=== PATIENT | female | born 1985 | race Caucasian/White ===

== ENCOUNTER 2017-09-01 23:54 | Outpatient (CLI) | payer OTHER ==
[~2017-09-01 23:54] MED LIST: ACETAMINOPHEN-1 EAC1 PO; AMBIEN5 M1 PO; BACTRIM,SEPT1 TABLET PO; CELEXA20 MG PO; CIPRO500 M1 PO; DOXYCYCLINE HY100 MG PO; ENDOCET 5-3251 EACH PO; FERROUS SULFAT325 MG PO; FLEXERIL10 MG PO; Feosol PO; Flagyl PO; IBUPROFEN800 MG PO; KEFLEX500 MG PO; Keflex PO; METHADONE PO; METHADONE10 MG PO; METHADOSE10 MG PO; METHadone HCl PO; MISOPROSTOL200 MCG PO; MOTRIN600 MG PO; MOTRIN800 MG PO; Macrobid PO; Methadone Oral Solut PO; Motrin PO; NAPROSYN500 MG PO; NATALCARE RX1 TABLET PO; NITROFURANTOIN100 M3 PO; NORCO 7.5/321 TABLET PO; NUVARING VAGIN1 EACH PO; Natalcare Rx,Pramile PO; PAXIL10 MG PO; PAXIL20 MG PO; PROMETHAZINE HC25 M1 PO; PYRIDIUM200 MG PO; Percocet 5/325,Endoc PO; Phenergan PO; REGLAN10 MG PO; STRATTERA40 MG PO; TRAMADOL HCL50 MG PO; TRI-ESTARYLLA1 EACH PO; ULTRAM50 MG PO; WELLBUTRIN100 MG PO; ZOFRAN ODT4 MG PO; ZOFRAN4 MG PO; ZOLOFT25 MG PO
[2017-09-02] VITALS (10 sets, daily range): BP systolic 97–117; BP diastolic 54–65
[2017-09-02 00:41] LABS: BASOPHIL (%) 0.1 % (0-1); EOSINOPHIL (%) 0.1 % (0-5); HEMATOCRIT 28.1 % (36.0-46.0); HEMOGLOBIN 9.4 G/DL (11.9-15.5); IMMATURE GRANULOCYTE (%) 0.6 % (0.0-0.7); LYMPHOCYTE (%) 5.4 % (15-42); LYMPHOCYTE COUNT 0.7 K/uL (1.0-2.8); MCH 27.4 PG (29.0-34.0); MCHC 33.5 G/DL (30.0-36.0); MCV 81.9 FL (83-99); MONOCYTE (%) 10.2 % (3-12); MONOCYTE COUNT 1.4 K/uL (0-0.8); NEUTROPHIL (%) 83.6 % (45-76); NEUTROPHIL COUNT 11.3 K/uL (1.8-6.4); PLATELET COUNT 189 K/uL (156-360); RBC DIS.WIDTH-CV 14.1 % (11.8-14.6); RBC DIS.WIDTH-SD 41.9 % (39-53); RED BLOOD COUNT 3.43 M/uL (3.80-5.20); WHITE BLOOD COUNT 13.5 K/uL (4.1-10.2)
[2017-09-02] MEDS ORDERED: MACROBID100 MG PO (01:03)
[2017-09-02] MEDS ORDERED: METHADONE 22 MG/1 ML PO (01:05)
[2017-09-02] MEDS ORDERED: ATARAX,VISTARIL25 MG PO (01:06)
[2017-09-02] MEDS ORDERED: PROMETHAZINE HC25 M1 PO (01:07)
[2017-09-02] MEDS ORDERED: EXCEDRIN MIGRA1 EAC3 PO (01:07)
[2017-09-02 02:22] LABS: APPEARANCE SL.HAZY ((CLEAR)); BILIRUBIN NEGATIVE; BLOOD NEGATIVE; COLOR YELLOW ((YELLOW)); GLUCOSE (STRIP) NEGATIVE; KETONES 5; LEUKOCYTES MODERATE; NITRITE NEGATIVE; PROTEIN (STRIP) 100; SPECIFIC GRAVITY 1.009 (1.000-1.030)
[2017-09-02 02:32] LABS: BACTERIA RARE /HPF; EPITHELIAL CELLS 1+ /HPF; MUCUS NONE SEEN /LPF; RED BLOOD CELLS 0-5 /HPF (0-5); UCUL ADDED? YES; WHITE BLOOD CELLS 20-30 /HPF (0-5)
[2017-09-02 03:21] LABS: AMPHETAMINE NEGATIVE (500 ng/mL); BARBITURATES NEGATIVE (200 ng/mL); BENZODIAZEPINES NEGATIVE (150 ng/mL); BUPRENORPHINE NEGATIVE (10 ng/mL); COCAINE NEGATIVE (150 ng/mL); METHADONE PRESUMPTIVE POSITIVE (200 ng/mL); METHAMPHETAMINE NEGATIVE (500 ng/mL); OPIATES (MORPHINE) NEGATIVE (100 ng/mL); OXYCODONE NEGATIVE (100 ng/mL); PHENCYCLIDINE NEGATIVE (25 ng/mL); PROPOXYPHENE NEGATIVE (300 ng/mL); THC CANNABINOIDS PRESUMPTIVE POSITIVE (50 ng/mL); TRICYCLIC ANTIDEPRESSANTS NEGATIVE (300 ng/mL)
[2017-09-02 12:03] LABS: BASOPHIL (%) 0.2 % (0-1); EOSINOPHIL (%) 0.6 % (0-5); EOSINOPHIL COUNT 0.1 K/uL (0-0.3); IMMATURE GRANULOCYTE (%) 0.7 % (0.0-0.7); LYMPHOCYTE (%) 7.5 % (15-42); LYMPHOCYTE COUNT 0.9 K/uL (1.0-2.8); MCH 27.5 PG (29.0-34.0); MCHC 33.3 G/DL (30.0-36.0); MCV 82.6 FL (83-99); MONOCYTE (%) 9.5 % (3-12); MONOCYTE COUNT 1.2 K/uL (0-0.8); NEUTROPHIL (%) 81.5 % (45-76); NEUTROPHIL COUNT 9.9 K/uL (1.8-6.4); PLATELET COUNT 195 K/uL (156-360); RBC DIS.WIDTH-CV 14.3 % (11.8-14.6); RED BLOOD COUNT 3.27 M/uL (3.80-5.20); WHITE BLOOD COUNT 12.2 K/uL (4.1-10.2)
[2017-09-02 12:11] LABS: ALBUMIN 2.7 g/dL (3.2-4.8); CHLORIDE 103 mEq/L (99-109); POTASSIUM 3.5 mEq/L (3.7-5.4); SODIUM 134 mEq/L (136-147)
[2017-09-02 12:14] LABS: GLUCOSE 149 mg/dL (70-99); TOTAL PROTEIN 5.4 g/dL (6.4-8.3)
[2017-09-02 12:16] LABS: TOTAL BILIRUBIN 0.2 mg/dL (0.0-1.0)
[2017-09-02 12:17] LABS: ALKALINE PHOSPHATASE 151 IU/L (3-129); CREATININE 0.7 mg/dL (0.6-1.3); GFR ESTIMATE (CALCULATED) > 59 mL/min/
[2017-09-02 12:18] LABS: UREA NITROGEN (BUN) 8 mg/dL (9-23)
[2017-09-02 12:19] LABS: AST (GOT) 14 IU/L (2-34)
[2017-09-02 12:20] LABS: ALT (GPT) 12 IU/L (3-49)
[2017-09-03 03:08] VITALS: BP 108/51
[2017-09-03 06:58] VITALS: BP 108/62
[2017-09-03 11:22] VITALS: BP 97/55
[2017-09-03 11:27] VITALS: BP 89/53
[2017-09-03] MEDS ORDERED: VICODIN 5-3001 EACH PO (12:19)
[2017-09-03 13:54] VITALS: BP 91/55
[2017-09-03 13:56] VITALS: BP 95/56
[2017-09-04] MEDS ORDERED: PRENATAL TABLE1 EAC3 PO (17:35)
[2017-09-04] MEDS ORDERED: PROMETHAZINE HC25 M1 PO (17:35)
== END 2017-09-03 14:24 | disposition home or self-care (01) ==
LOC: LDRP-OP 23:54 → 2WEST 23:55
PROVIDERS: Midwife; Obstetrics & Gynecology; Obstetrics & Gynecology Obstetrics
DX: O23.03 Infections of kidney in pregnancy, third trimester (principal); N12 Tubulo-interstitial nephritis, not specified as acute or chronic; B96.20 Unspecified Escherichia coli [E. coli] as the cause of diseases classified elsewhere; Z87.440 Personal history of urinary (tract) infections; Z87.442 Personal history of urinary calculi; Z3A.37 37 weeks gestation of pregnancy; O99.323 Drug use complicating pregnancy, third trimester; F11.20 Opioid dependence, uncomplicated; F12.90 Cannabis use, unspecified, uncomplicated; O99.343 Other mental disorders complicating pregnancy, third trimester; F41.9 Anxiety disorder, unspecified; F32.9 Major depressive disorder, single episode, unspecified; O99.333 Smoking (tobacco) complicating pregnancy, third trimester; F17.200 Nicotine dependence, unspecified, uncomplicated; O99.213 Obesity complicating pregnancy, third trimester; E66.9 Obesity, unspecified; Z68.41 Body mass index [BMI] 40.0-44.9, adult; O34.211 Maternal care for low transverse scar from previous cesarean delivery; O09.33 Supervision of pregnancy with insufficient antenatal care, third trimester; Z82.49 Family history of ischemic heart disease and other diseases of the circulatory system; Z82.5 Family history of asthma and other chronic lower respiratory diseases; Z82.3 Family history of stroke; Z82.0 Family history of epilepsy and other diseases of the nervous system; Z80.1 Family history of malignant neoplasm of trachea, bronchus and lung; Z80.0 Family history of malignant neoplasm of digestive organs; Z83.49 Family history of other endocrine, nutritional and metabolic diseases
CPT/HCPCS: 59025; 80053; 81003; 83605; 84999; 85025; 85025 91; 87040; 87077; 87081; 87086; 87186; 87653; 87801; G0378; J0696; J7120; Q0169

== ENCOUNTER 2017-09-14 07:14 | Inpatient (IN) | payer OTHER ==
[~2017-09-14] VITALS: Ht 165.1 cm; Wt 122.7 kg
[~2017-09-14 07:14] MED LIST changes: +ATARAX,VISTARIL25 MG PO; +EXCEDRIN MIGRA1 EAC3 PO; +MACROBID100 MG PO; +METHADONE 22 MG/1 ML PO; +PRENATAL TABLE1 EAC3 PO; +ROCEPHIN2 GM/50 ML IV; +VICODIN 5-3001 EACH PO
[2017-09-14 07:33] VITALS: BP 117/58
[2017-09-14 08:56] VITALS: BP 102/50
[2017-09-14 11:34] LABS: AMPHETAMINE NEGATIVE (500 ng/mL); BARBITURATES NEGATIVE (200 ng/mL); BENZODIAZEPINES NEGATIVE (150 ng/mL); BUPRENORPHINE NEGATIVE (10 ng/mL); COCAINE NEGATIVE (150 ng/mL); METHADONE PRESUMPTIVE POSITIVE (200 ng/mL); METHAMPHETAMINE NEGATIVE (500 ng/mL); OPIATES (MORPHINE) NEGATIVE (100 ng/mL); OXYCODONE NEGATIVE (100 ng/mL); PHENCYCLIDINE NEGATIVE (25 ng/mL); PROPOXYPHENE NEGATIVE (300 ng/mL); THC CANNABINOIDS NEGATIVE (50 ng/mL); TRICYCLIC ANTIDEPRESSANTS NEGATIVE (300 ng/mL)
[2017-09-14 14:12] VITALS: BP 111/65
[2017-09-14 15:35] VITALS: BP 119/57
[2017-09-14 17:23] VITALS: BP 109/59
[2017-09-14 19:16] VITALS: BP 106/55
[2017-09-15 06:23] LABS: BASOPHIL (%) 0.2 % (0-1); EOSINOPHIL (%) 0.7 % (0-5); EOSINOPHIL COUNT 0.1 K/uL (0-0.3); HEMATOCRIT 26.9 % (36.0-46.0); HEMOGLOBIN 8.4 G/DL (11.9-15.5); IMMATURE GRANULOCYTE (%) 0.7 % (0.0-0.7); LYMPHOCYTE (%) 22.6 % (15-42); LYMPHOCYTE COUNT 2.2 K/uL (1.0-2.8); MCH 26.4 PG (29.0-34.0); MCHC 31.2 G/DL (30.0-36.0); MCV 84.6 FL (83-99); MONOCYTE (%) 7.6 % (3-12); MONOCYTE COUNT 0.7 K/uL (0-0.8); NEUTROPHIL (%) 68.2 % (45-76); NEUTROPHIL COUNT 6.7 K/uL (1.8-6.4); NRBC (%) 0.3 /100 WBC (0-0); PLATELET COUNT 344 K/uL (156-360); RBC DIS.WIDTH-CV 15.3 % (11.8-14.6); RBC DIS.WIDTH-SD 45.1 % (39-53); RED BLOOD COUNT 3.18 M/uL (3.80-5.20); WHITE BLOOD COUNT 9.8 K/uL (4.1-10.2)
[2017-09-15 07:17] VITALS: BP 118/62
[2017-09-15 11:25] VITALS: BP 121/66
[2017-09-15 14:34] VITALS: BP 120/64
[2017-09-15 22:45] VITALS: BP 129/60
[2017-09-16 03:03] VITALS: BP 112/59
[2017-09-16 07:18] VITALS: BP 115/56
[2017-09-16 10:43] VITALS: BP 109/61
[2017-09-16] MEDS ORDERED: DOCUSATE SODIU100 MG PO (11:17)
[2017-09-16] MEDS ORDERED: IBUPROFEN800 MG PO (11:17)
[2017-09-16] MEDS ORDERED: ENDOCET 5-3251 EACH PO (11:17)
[2017-09-16] MEDS ORDERED: METHADONE10 MG PO (11:19)
[2017-09-16 14:41] VITALS: BP 118/64
[2017-09-16 23:15] VITALS: BP 121/65
[2017-09-17 07:00] VITALS: BP 124/64
[2017-09-17 14:41] VITALS: BP 119/72
[2017-09-18 07:24] VITALS: BP 127/59
[2017-09-18] MEDS ORDERED: FERROUS SULFAT325 MG PO (10:42)
== END 2017-09-18 13:59 | disposition home or self-care (01) | DRG 765 ==
LOC: 2SOUTH 07:14 → 2WEST 07:16 → 2SOUTH 14:37 → 2WEST 09-18 13:59
PROVIDERS: Obstetrics & Gynecology
DX: O34.211 Maternal care for low transverse scar from previous cesarean delivery (principal); O99.89 Other specified diseases and conditions complicating pregnancy, childbirth and the puerperium; R78.81 Bacteremia; O99.214 Obesity complicating childbirth; E66.01 Morbid (severe) obesity due to excess calories; Z68.41 Body mass index [BMI] 40.0-44.9, adult; O99.324 Drug use complicating childbirth; F11.20 Opioid dependence, uncomplicated; O99.02 Anemia complicating childbirth; D62 Acute posthemorrhagic anemia; N73.6 Female pelvic peritoneal adhesions (postinfective); O99.824 Streptococcus B carrier state complicating childbirth; O99.334 Smoking (tobacco) complicating childbirth; F17.210 Nicotine dependence, cigarettes, uncomplicated; B96.20 Unspecified Escherichia coli [E. coli] as the cause of diseases classified elsewhere; Z30.2 Encounter for sterilization; Z3A.39 39 weeks gestation of pregnancy; Z37.0 Single live birth; Z79.899 Other long term (current) drug therapy
CPT/HCPCS: 81003; 82948; 85025; 85027; 86850; 86900; 86901; 86920; 87086; 88302; 96365; J0131; J0690; J0696; J1100; J1170; J1885; J2250; J2274; J2405; J2590; J3010; J7050; J7120